=== PATIENT | male | born 1970 | race Hispanic/Latino ===

== ENCOUNTER 2019-11-16 05:12 | Observation (INO) | payer SELFPAY ==
[2019-11-16] MEDS ORDERED: Lidocaine Viscous Sol 2% 15 ml UD Cup ONE (05:33)
[2019-11-16] MEDS ORDERED: Dexamethasone 10 MG/ML VIAL ONE (06:50)
[2019-11-16] MEDS ORDERED: Clindamycin/D5W 600 mg/50 ml Premix Bag ONE (06:51)
[2019-11-16 07:28] LABS: #Basophils 0.1 thou/uL (0.0-0.2); #Eosinphils 0.2 thou/uL (0.0-0.7); #Monocytes 1.4 thou/uL (0.11-0.59); #Neutrophils 7.9 thou/uL (1.40-6.50); %Basophils 1.1 % (0.0-1.0); %Eosinophils 1.9 % (0.0-10.0); %Lymphocytes 17.2 % (21.0-51.0); %Monocytes 12.2 % (0.0-10.0); %Neutrophils 67.8 % (42.0-75.0); Hemoglobin 15.3 g/dL (14.0-18.0); Mean Corpuscular HGB CONC 33.8 g/dL (32.0-36.0); Mean Corpuscular Hemoglobin 28.9 pg (27.0-31.0); Mean Corpuscular Volume 85.5 fL (78.0-98.0); Mean Platelet Volume 8.9 fL (7.4-10.4); Platelet Count 191 thou/uL (130-400); RBC Distribution Width 13.7 % (11.5-14.5); Red Blood Cell (RBC) Count 5.29 mill/uL (4.70-6.10); White Blood Cell (WBC) Count 11.7 thou/uL (4.8-10.8)
[2019-11-16 07:48] LABS: ALT (SGPT) 25 U/L (8-55); AST (SGOT) 25 U/L (5-34); Albumin 4.3 g/dL (3.5-5.0); Alkaline Phosphatase 99 U/L (40-110); Anion Gap 12 mmol/L (10-20); BUN (Urea Nitrogen) 16 mg/dL (8.9-20.6); Bilirubin, Total 0.6 mg/dL (0.2-1.2); Calc. Creatinine Clearance 0 mL/min (70-130); Carbon Dioxide 22 mmol/L (22-29); Chloride 107 mmol/L (98-107); Estimated GFR-MDRD Greater than 90; Globulin 3.4 g/dL (2.4-3.5); Glucose 97 mg/dL (70-105); Potassium 3.8 mmol/L (3.5-5.1); Protein, Total 7.7 g/dL (6.0-8.3); Sodium 137 mmol/L (136-145)
[2019-11-16] MEDS ORDERED: Clindamycin/D5W 300 MG in Premix Bag 1 BAG IVPB SCH (08:00)
--- NOTE | 2019-11-16 09:05 | CT ---
CHEST CT WITHOUT CONTRAST: HISTORY: Foreign body sensation in the throat. COMPARISON: 03/28/2015 FINDINGS: Lower neck and axilla are unremarkable. Limited evaluation of the mediastinum by the lack of IV contrast. No mediastinal mass, lymphadenopat hy, or hematoma. Heart size is within normal limits. No pericardial effusion. Visualized aorta has a normal caliber. No periaortic fat stranding. Upper abdomen does not demonstrate any acute abnormality. The proximal thoracic esophagus appears to have air within its lumen. The mid thoracic esophagus, at the level of the tracheal bifurcation, is compressed. The distal thoracic esophagus is patent and h as a normal mucosal appearance. Trachea and central bronchi are patent. No pleural effusion. No pneumothorax. 0.5 x 0.4 cm solid nodule in the right upper lobe, abutting the pleura. 0.2 x 0.2 cm solid nodule in the posterior left upper lobe. No lytic or blastic lesions in the osseous structures. IMPRESSION: 1. The lumen of the proximal and distal thoracic esophagus is patent. The mid thoracic esophagus ap pears to be compressed as it passes posterior to the tracheal bifurcation. If there is concern, Amado rografin esophagram can be performed. Conversely, endoscopy can be performed. 2. Solid nodules as described above. The right lung nodule is unchanged since 03/28/2015. Left uppe r lobe nodule is below the size threshold criteria but appears to be unchanged on the coronal images since 2014. POS: PPP
--- NOTE | 2019-11-16 09:15 | CT ---
NONCONTRAST SOFT TISSUE NECK CT: HISTORY: Foreign body sensation. COMPARISON: None. FINDINGS: Limited evaluation by the absence of IV contrast. Grossly, the visualized brain parenchyma and orbit s are unremarkable. Mild mucosal thickening in the visualized paranasal sinuses. Adequate mastoid air cell aeration. Visualized aerodigestive tract is patent. Mild fullness of the bilateral palatine tonsils is nonspec ific. No obvious masses in the oral cavity. Evaluation is limited by dental amalgam artifact. Possi ble mild edematous change involving the posterior hypopharynx/supraglottic larynx. Epiglottis has a n ormal caliber. Preepiglottic fat is preserved. The supraglottic, glottic, and subglottic larynx is unremarkable. Salivary glands have appropriate attenuation. Scattered nonspecific, nonenlarged bilateral soft tissue neck lymph nodes. Appropriate attenuation of the thyroid gland. Appropriate attenuation of the paraspinal muscles. Cervical spine vertebral body height is maintained. No fracture. Straightening of the cervical lord osis is presumed to be positional. There are varying degrees of central canal stenosis and foraminal narrowing on the basis of degenerative change. The visualized cervical esophagus is decompressed. There does appear to be air in the lumen of the p roximal thoracic esophagus. There does appear to be mild mucosal edema with apposition of the mucosal posteriorly in the hypophar ynx/supraglottic larynx. Direct visualization is recommended for possible edematous change. IMPRESSION: 1. No evidence of a radiopaque foreign body in the aerodigestive tract. 2. Possible mild edematous change involving the posterior hypopharynx/supraglottic larynx. Direct v isualization is recommended. POS: PPP
[2019-11-16] MEDS ORDERED: Pantoprazole 40 MG VIAL ONE (09:16)
[2019-11-16] MEDS ORDERED: HYDROcodone/Acetaminophen 7.5/325 mg Tablet PO PRN (09:49)
[2019-11-16] MEDS ORDERED: Bisacodyl 10 MG SUPP PR PRN (09:49)
[2019-11-16] MEDS ORDERED: HYDROcodone/Acetaminophen 5/325 mg Tablet PO PRN (09:49)
[2019-11-16] MEDS ORDERED: Calcium Carbonate 500 MG ChewTAB PO PRN (09:49)
[2019-11-16] MEDS ORDERED: Ondansetron ODT 4 MG TAB PO PRN (09:49)
[2019-11-16] MEDS ORDERED: Acetaminophen 325 MG TAB PO PRN (09:49)
[2019-11-16] MEDS ORDERED: Ondansetron PF 4 MG/2 ML Vial IVP PRN (09:49)
--- NOTE | 2019-11-16 09:51 | CON ---
DATE OF CONSULTATION: 11/16/2019 CHIEF COMPLAINT: I am seeing Mr. Monae in consultation at the request of Dr. Kerr for evaluation and treatment of throat swelling and pain. HISTORY OF PRESENT ILLNESS: The patient is a 49-year-old man who states that he was eating some chicharrones yesterday evening and then afterwards started having some discomfort in the throat. He did not appreciate swallowing any type of a foreign body. He has never had similar problems previously. He waited until the pain got worse and worse to the point where he felt like he needed to come to the emergency department as he could not swallow. He was seen in the emergency department and they were not concerned about his airway. He got a CT scan which showed some pharyngeal swelling apparently, and then they notified me and I asked them to place him on some Decadron and clindamycin that was about 2 hours prior to my arrival and upon arrival, the patient states that he is feeling significantly better. He has never had similar problems previously. He has no other ear, nose, or throat concerns on a regular basis. PAST MEDICAL HISTORY: None significant. PAST SURGICAL HISTORY: No ENT surgery. The remaining medical history was reviewed on the ER physician and nurse intake in no discernible changes noted. REVIEW OF SYSTEMS: Review of systems was also reviewed on the patient's intake with the emergency department. PHYSICAL EXAMINATION: The patient is in no distress, resting comfortably. While arrived actually asleep with his head elevated. Upon awakening, he did have kind of a gravelly voice and was complaining of some discomfort, but in no time was he having any respiratory distress. Head is normocephalic. The parotid and submandibular glands are smooth. There is normal facial tone. External ears and nose show no scars or masses. Ear canals are clear. Ear drums are intact and clear with normal middle ears. Anterior rhinoscopy reveals pink moist mucosa. I passed the flexible scope through the nose, it shows a deviated septum to the left, impinging on the lateral nasal wall, but the right side was widely patent. The nasopharynx was clear without any mass or lesion. These fossa of Rosenmuller and torus tubarius are normal. The oral cavity, lips, teeth, and gums are in good repair. Tongue is normal. Posterior oropharynx is unremarkable with 2+ tonsils without erythema or exudates and the airway is patent. There is no uvular edema. Neck; there is no mass or thyromegaly. The trachea is midline. There is no stridor. Lymphatic; no palpable cervical lymphadenopathy. PROCEDURE NOTE: I did spray the nose with decongestant anesthetic and passed a flexible scope through the nose on that right side. Again, the nasal passage was unremarkable except for the deviated septum with a normal nasopharynx. Hypopharynx and larynx showed a lot of edema in pharyngeal gutters bilaterally as well as a little bit posteriorly as he got down near the glottis, but it is not anywhere near obstructing. I see no evidence of foreign body. I see no purulent secretions. The glottis itself is normal in appearance. The vocal cords are normal, mobile and meeting the midline and the subglottis is clear. The epiglottis is normal as well. DIAGNOSTIC DATA: Data; reviewed the CT scan, which does show the soft tissue swelling in the hypopharynx, but I do not see any evidence of a foreign body or abscess collections and/or neoplasm. IMPRESSION: Pharyngeal edema consistent with either a laceration from something eaten or reflux or negative pressure with sleep apnea or combination of all three. PLAN: I recommend that the patient be admitted for intravenous steroids and antibiotics and observed and if his symptoms worsen, then notify me and we can reassess, but I expect that he will be better by tomorrow or Monday at the latest he will be able to go home. He is clear to take an oral diet. I would stick with liquids right now, but certainly he can remain n.p.o. if he is more comfortable with that and he can follow up as an outpatient if needed. I do not expect that this is something that would need an ENT followup as an outpatient. Job ID: [id number]
[2019-11-16] MEDS ORDERED: diphenhydrAMINE 25 MG CAP PO PRN (09:52)
[2019-11-16] MEDS ORDERED: Docusate 100 MG CAP PO PRN (09:52)
[2019-11-16] MEDS ORDERED: Melatonin 3 MG TAB PO PRN (09:52)
[2019-11-16] MEDS ORDERED: Benzonatate 100 MG CAP PO PRN (09:52)
[2019-11-16] MEDS ORDERED: Labetalol HCl 100 MG/20 ML VIAL SLOW IVP PRN (09:52)
[2019-11-16] MEDS ORDERED: Clindamycin/D5W 300 MG/50 ML BAG IVPB SCH (12:00)
[2019-11-16] MEDS: Dexamethasone 4 mg/ml Vial SLOW IVP SCH ×3 (13:03→21:33)
--- NOTE | 2019-11-16 13:56 | PDOC.HHP ---
Hospitalist HPI - History of Present Illness Pain in throat History of Present Illness: 49-year-old gentleman presents with pain in the throat. Patient was eating a dehydrated pork snack when he developed pain in the throat. This pain in the throat was a sensation that something was stuck in his throat and this caused him discomfort. For this the patient tried several times with vomiting and dry heaving though this did not help. Patient throughout this process was breathing comfortably and there was no shortness of breath or wheezing. Patient with CT scan with pharyngeal inflammation and ENT was called. ENT performing direct visualization with endoscopy via the nose please see full report for details. With the possibility that there is some irritation to the posterior pharynx ENT recommended steroids, clindamycin, and overnight monitoring. Hospitalist ROS - Review of Systems All other systems reviewed; all pertinent +/- noted in HPI/Subj - Medication Medications: Active Medications Generic Name Dose Route Start Last Admin Trade Name Freq PRN Reason Stop Dose Admin Albuterol/Ipratropium 3 ml 11/16/19 11:00 11/16/19 13:05 Duoneb NEB 3 ml [id number] STEPHEN Administration Dexamethasone 4 mg 11/16/19 10:00 11/16/19 13:03 Decadron SLOW IVP Not Given Q6H STEPHEN Hospitalist History - Past Medical History Source: patient, family, old records Cardiac: reports: no pertinent history Pulmonary: reports: no pertinent history - Past Surgical History Past Surgical History: reports: Other - Family History Family History: reports: hypertension - Social History Smoking Status: Unknown if ever smoked Alcohol: reports: Rare Drugs: reports: none Living Situation: With Family Domestic Violence: Negative Activity level: independent ambulation - Exam General Appearance: awake alert Eye: PERRL ENT: normocephalic atraumatic, moist mucosa Neck: supple, symmetric, no lymphadenopathy Heart: RRR, no murmur, no gallops, no rubs Respiratory: CTAB, no wheezes, no rales, no ronchi, normal chest expansion, no tachypnea Gastrointestinal: soft, non-tender, non-distended, no guarding, no rigidity Extremities: no edema Skin: no lesions, no rashes Neurological: cranial nerve grossly intact, no focal deficits Musculoskeletal: generalized weakness Psychiatric: normal affect, normal behavior, A&O x 3 Hospitalist Results - Labs Result Diagrams: 11/16/19 07:15 11/16/19 07:15 Lab results: WBC 11.7 thou/uL (4.8-10.8) H 11/16/19 07:15 Hgb 15.3 g/dL (14.0-18.0) 11/16/19 07:15 Hct 45.3 % (42.0-52.0) 11/16/19 07:15 MCV 85.5 fL (78.0-98.0) 11/16/19 07:15 Plt Count 191 thou/uL (130-400) 11/16/19 07:15 Neutrophils % 67.8 % (42.0-75.0) 11/16/19 07:15 Sodium 137 mmol/L (136-145) 11/16/19 07:15 Potassium 3.8 mmol/L (3.5-5.1) 11/16/19 07:15 Chloride 107 mmol/L (98-107) 11/16/19 07:15 Carbon Dioxide 22 mmol/L (22-29) 11/16/19 07:15 BUN 16 mg/dL (8.9-20.6) 11/16/19 07:15 Creatinine 0.83 mg/dL (0.7-1.3) 11/16/19 07:15 Glucose 97 mg/dL (70-105) 11/16/19 07:15 Calcium 9.0 mg/dL (7.8-10.44) 11/16/19 07:15 Total Bilirubin 0.6 mg/dL (0.2-1.2) 11/16/19 07:15 AST 25 U/L (5-34) 11/16/19 07:15 ALT 25 U/L (8-55) 11/16/19 07:15 Alkaline Phosphatase 99 U/L (40-110) 11/16/19 07:15 Serum Total Protein 7.7 g/dL (6.0-8.3) 11/16/19 07:15 Albumin 4.3 g/dL (3.5-5.0) 11/16/19 07:15 - Radiology Interpretation Other Status: image reviewed by pr Hospitalist H&P A/P - Problem (1) Pain in throat Code(s): R07.0 - PAIN IN THROAT Status: Acute (2) Pharyngeal edema Code(s): J39.2 - OTHER DISEASES OF PHARYNX Status: Acute (3) Pain on swallowing Code(s): R13.10 - DYSPHAGIA, UNSPECIFIED Status: Acute (4) Obesity Code(s): E66.9 - OBESITY, UNSPECIFIED Status: Acute - Plan Plan: Plan: admit to medical/surgical unit ENT consultation, recommendations appreciated gastroenterology consultation, recommendations appreciated status post direct visualization by ENT I discussed the case with gastroenterology who believes this is an ENT issue ENT recommending IV Decadron and clindamycin which have been added if patient does not improve on current medical therapy may require visualization of the esophagus pain with swallowing, will add G.I. cocktail clear liquid diet famotidine BID G.I. prophylaxis blood pressure control blood sugar control
[2019-11-16 14:27] VITALS: BMI 34.2
[2019-11-16] MEDS: Clindamycin/D5W 300 MG/50 ML BAG IVPB SCH ×2 (15:41→21:33)
[2019-11-16] MEDS ORDERED: Lidocaine 2% Viscous Solution 10 ML, Aluminum & Magnesium Hydroxide 30 ML SSW PRN (17:50)
[2019-11-16] MEDS: Famotidine 20 MG TAB PO SCH (21:33)
[2019-11-17] MEDS: Clindamycin/D5W 300 MG/50 ML BAG IVPB SCH ×2 (03:28→09:06)
[2019-11-17] MEDS: Dexamethasone 4 mg/ml Vial SLOW IVP SCH ×2 (03:28→09:06)
[2019-11-17 06:08] LABS: #Lymphocytes 1.3 thou/uL (1.20-3.40); #Monocytes 0.9 thou/uL (0.11-0.59); #Neutrophils 15.6 thou/uL (1.40-6.50); %Eosinophils 0.1 % (0.0-10.0); %Lymphocytes 7.2 % (21.0-51.0); %Monocytes 4.9 % (0.0-10.0); %Neutrophils 87.8 % (42.0-75.0); Hemoglobin 14.8 g/dL (14.0-18.0); Mean Corpuscular HGB CONC 33.9 g/dL (32.0-36.0); Mean Corpuscular Hemoglobin 29.5 pg (27.0-31.0); Mean Corpuscular Volume 87.3 fL (78.0-98.0); Mean Platelet Volume 9.1 fL (7.4-10.4); Platelet Count 217 thou/uL (130-400); RBC Distribution Width 13.8 % (11.5-14.5); Red Blood Cell (RBC) Count 4.99 mill/uL (4.70-6.10); White Blood Cell (WBC) Count 17.7 thou/uL (4.8-10.8)
[2019-11-17 06:29] LABS: Anion Gap 11 mmol/L (10-20); BUN (Urea Nitrogen) 14 mg/dL (8.9-20.6); Calc. Creatinine Clearance 152 mL/min (70-130); Calcium 9.2 mg/dL (7.8-10.44); Carbon Dioxide 23 mmol/L (22-29); Chloride 107 mmol/L (98-107); Estimated GFR-MDRD Greater than 90; Glucose 208 mg/dL (70-105); Potassium 3.8 mmol/L (3.5-5.1); Sodium 137 mmol/L (136-145)
[2019-11-17] MEDS: Famotidine 20 MG TAB PO SCH (09:06)
[2019-11-17 15:14] VITALS: BP 145/83; TEMP 98.2
--- NOTE | 2019-11-17 20:09 | PDOC.BPN ---
- Brief Progress Note [facility]IVE [facility] Discharge Patient Name: ELLEN DANIELS Date of : 72 Patient Status: Observation Attending Provider: Duc Gurrola Date: 11/17/19 20:08 Initialization Date: 11/17/19 20:08 Discharge - Disposition Disposition: HOME - Ambulatory Orders Prescriptions: Clindamycin HCl [Cleocin] 300 mg PO Q6HR 5 Days #20 capsule - Patient Instructions Pre-Printed Education: Dysphagia, Pharyngitis, [id number]-[id number] Care Plan Goals: FOCUS: Transition from Acute Care after Discharge GOAL: Successful transition to care in the community YOUR TASKS: (1) review all information outlined in your discharge packet (2) follow any instructions outlined in your discharge packet (3) contact your primary care provider if you have questions or need additional assistance CALL YOUR DOCTOR IF YOU DEVELOP DIFFICULTY SWALLOWING, AND CALL 911 IF YOU HAVE CHEST PAIN OR DIFFICULTY BREATHING. - Referrals and PCP Follow-Up Referrals and PCP Follow-Up: PROVIDER,NO PCP [Primary Care Provider] - Course - Course Orders, Labs, Meds: Patient presenting with discomfort in throat and difficulty swallowing. CT showing pharyngeal swelling. Patient was treated with steroid and antibiotics. ENT performed flexible scope which demonstrated edema in the pharyngeal gutters. There was no evidence of foreign body or purulent secretions. Likely pharyngeal edema consistent with a laceration from something eaten or reflux. After being managed with steroid and antibiotic therapy for 24 hours, patient noted significant improvement in his swallowing and overall symptoms. Discussed case with ENT, patient can be discharged with a short course of antibiotics and follow-up as needed.
== END 2019-11-17 16:32 | disposition home or self-care (01) ==
LOC: ERS 05:12 → SURG B 12:41
PROVIDERS: ADMIT Internal Medicine; ATTEND Internal Medicine
PROC: 0CJS8ZZ Inspection of Larynx, Via Natural or Artificial Opening Endoscopic (ICD-10-PCS; principal; 2019-11-17)
DX: J39.2 Other diseases of pharynx (principal); J34.2 Deviated nasal septum; R91.8 Other nonspecific abnormal finding of lung field; R13.10 Dysphagia, unspecified; E66.9 Obesity, unspecified; Z68.34 Body mass index [BMI] 34.0-34.9, adult
CPT/HCPCS: 36415; 70490; 71250; 80048; 80053; 85025; 94640; 96365; 96366; 96375; 96376; C9113; G0378; J1100; J3490; J7620